=== PATIENT | female | born 1985 | race Caucasian/White ===

== ENCOUNTER 2017-07-22 14:15 | Emergency (ER) | payer BC, MEDICAID ==
[~2017-07-22] VITALS: Ht 167.6 cm; Wt 124.0 kg
[~2017-07-22 14:15] MED LIST: BUSP10 PO; EPIP0.3I IM; IRON18TA2 PO; LORTA5 PO; METH2.5 PO; PRED20 PO; TOPI50TA4 PO
[2017-07-22 14:21] VITALS: BP 171/100; PULSE 90; RESP 18; TEMP 97.2; O2SAT 96
[2017-07-22] MEDS ORDERED: HYDR-2374 PO (14:38)
[2017-07-22 15:04] LABS: BILIRUBIN, URINE NEG (NEG); BLOOD, URINE NEG (NEG); GLUCOSE,URINE NEG (NEG); KETONE, URINE NEG (NEG); NITRITE,URINE NEG (NEG); PH, URINE 5.5 (5.0-8.5); URINE LEUKOCYTE ESTERASE NEG (NEG)
[2017-07-22 15:09] LABS: URINE COLOR YELLOW (YELLW/STRAW)
[2017-07-22 15:10] LABS: RBC, URINE 0-3 /hpf (0-3); SQUAMOUS EPITHELIAL CELL URINE 0-5 /hpf (0-5); WBC, URINE 0-2 /hpf (0-5)
[2017-07-22 15:15] VITALS: O2SAT 98
[2017-07-22] MEDS ORDERED: SODIUM CHLORIDE 0.9% FLUSH 10 ML FLUSH IV FLUSH PRN (15:15)
[2017-07-22 15:21] LABS: AUTOMATED NEUTROPHIL # 8.4 TH/MM3 (1.8-7.7); BASOPHIL # 0.3 TH/MM3 (0-0.2); BASOPHIL % 2.2 % (0.0-2.0); EOSINOPHIL # 0.1 TH/MM3 (0-0.4); EOSINOPHIL % 0.9 % (0.0-4.0); HEMATOCRIT 41.5 % (35.0-46.0); LYMPH % 20.9 % (9.0-44.0); LYMPHOCYTE # 2.5 TH/MM3 (1.0-4.8); MEAN CELL VOLUME 80.6 FL (80.0-100.0); MEAN CORPUSCULAR HEMOGLOBIN 25.3 PG (27.0-34.0); MEAN CORPUSCULAR HGB CONC 31.3 % (32.0-36.0); MEAN PLATELET VOLUME 7.8 FL (7.0-11.0); MONO % 4.7 % (0.0-8.0); MONOCYTE # 0.6 TH/MM3 (0-0.9); NEUT % 71.3 % (16.0-70.0); PLATELET COUNT 391 TH/MM3 (150-450); RED BLOOD COUNT 5.15 MIL/MM3 (4.00-5.30); RED CELL DISTRIBUTION WIDTH 14.6 % (11.6-17.2); WHITE BLOOD COUNT 11.9 TH/MM3 (4.0-11.0)
[2017-07-22 15:29] LABS: CHLORIDE 103 MEQ/L (98-107); SODIUM (NA) 139 MEQ/L (136-145)
[2017-07-22 15:32] LABS: CALCIUM 9.1 MG/DL (8.5-10.1)
[2017-07-22 15:33] LABS: ALBUMIN 3.6 GM/DL (3.4-5.0); BICARBONATE 26.9 MEQ/L (21.0-32.0); BLOOD UREA NITROGEN 17 MG/DL (7-18); GLUCOSE,RANDOM 97 MG/DL (74-106); LIPASE 146 U/L (73-393)
[2017-07-22 15:35] LABS: ALT (GPT) 27 U/L (10-53)
[2017-07-22 15:36] LABS: AST (GOT) 15 U/L (15-37); CREATININE 0.78 MG/DL (0.50-1.00); GLOMERULAR FILTRATION RATE 85 ML/MIN (>89)
[2017-07-22 15:37] LABS: TOTAL BILIRUBIN ADULT 0.3 MG/DL (0.2-1.0)
[2017-07-22 15:38] LABS: ALKALINE PHOSPHATASE 88 U/L (45-117)
[2017-07-22] MEDS ORDERED: KETOROLAC TROMETHAMINE 30 MG/ML (IVP) VIAL IV PUSH ONE (15:45)
[2017-07-22 16:11] VITALS: BP 178/92; PULSE 98; RESP 16; O2SAT 98
--- NOTE | 2017-07-22 16:12 | PD ---
HPI Chief Complaint: Abdominal Pain Time Seen by Provider: 14:53 Travel History International Travel<30 days: No Contact w/Intl Traveler<30days: No Traveled to known affect area: No History of Present Illness HPI Patient is a 32-year-old female presents emergency department for evaluation of left lower quadrant abdominal pain, mild nausea for the past 2 weeks. Patient states been coming and going for some time. Has a history of lupus, fibromyalgia. She also has multiple other complaints including left upper extremity pain left upper extremity pain. No fevers no diarrhea no blood in stool no blood in the emesis. States she has not seen her primary care physician for this. She is coming by her who she states rather insisted that she come into the emergency department to be seen. She states her pain is 10 out of 10 intensity left lower quadrant, associated signs symptoms as above and context as above. Patient also states she is on her cycle now. 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) Diabetes: No Diminished Hearing: No Fibromyalgia: Yes GERD: No Genitourinary: No Headaches: Yes Hepatitis: No Hiatal Hernia: No Immune Disorder: Yes (LUPUS ) Kidney Stones: No Musculoskeletal: No Neurologic: Yes Reproductive: No Respiratory: No Immunizations Current: Yes Migraines: Yes Myocardial Infarction: No Renal Failure: No Seizures: No Ulcer: No Tetanus Vaccination: > 5 Years Influenza Vaccination: No ?: Not LMP: NOW Menopausal: No : 3 Para: 3 Miscarriage: 0 : 0 Tubal Ligation: Yes Past Surgical History Abdominal Surgery: No Appendectomy: No Cardiac Surgery: No Section: Yes (X 3) Cholecystectomy: No Ear Surgery: No Endocrine Surgery: No Eye Surgery: No Genitourinary Surgery: No Gynecologic Surgery: Yes (BREAST AUGMENTATION) Oral Surgery: No Thoracic Surgery: No Other Surgery: Yes (breast augmentation) Social History Alcohol Use: Yes (OCC) Tobacco Use: No Substance Use: No Allergies-Medications (Allergen,Severity, Reaction): Coded Allergies: penicillin G (Unverified Allergy, Severe, Anaphylaxis, 07/22/17) Reported Meds & Prescriptions Reported Meds & Active Scripts Active Reported Hydrocodone-Acetaminophen 10-300 Tab 1 Tab PO Q6H PRN Review of Systems Except as stated in HPI: all other systems reviewed are Neg Physical Exam Narrative GENERAL: Well-developed, morbidly obese female who appears to be in no distress. SKIN: Focused skin assessment warm/dry. HEAD: Atraumatic. Normocephalic. EYES: Pupils equal and round. No scleral icterus. No injection or drainage. ENT: No nasal bleeding or discharge. Mucous membranes pink and moist. NECK: Trachea midline. No JVD. CARDIOVASCULAR: Regular rate and rhythm. No murmur appreciated. RESPIRATORY: No accessory muscle use. Clear to auscultation. Breath sounds equal bilaterally. GASTROINTESTINAL: Abdomen obese but soft no true tenderness no rebound no percussive tenderness. No CVA tenderness, so some doctors as negative. No tenderness of Kelley's point and no tenderness at McBurney's point. GENITOURINARY: Exam was performed with a female nurse recruitment internship Tina Sales present at all times. Grossly normal external female genitalia with the exception of toilet paper which is visible on the external genitalia are wanted appears to extend internally. No vaginal discharge no vaginal bleeding, no cervical motion tenderness no bimanual tenderness. Patella. Her walker was able to be grasped manually and removed in its entirety. MUSCULOSKELETAL: No obvious deformities. No clubbing. No cyanosis. No edema. NEUROLOGICAL: Awake and alert. No obvious cranial nerve deficits. Motor grossly within normal limits. Normal speech. PSYCHIATRIC: Appropriate mood and affect; insight and judgment normal. Data Data Last Documented VS Vital Signs Date Time Temp Pulse Resp B/P (MAP) Pulse Ox O2 Delivery O2 Flow Rate FiO2 07/22/17 17:12 07/22/17 16:11 98 16 98 Room Air 07/22/17 14:21 97.2 Orders Orders Urinalysis - C+S If Indicated (07/22/17 14:36) Ed Urine Pregnancytest Poc (07/22/17 14:36) Complete Blood Count With Diff (07/22/17 15:06) Comprehensive Metabolic Panel (07/22/17 15:06) Lipase (07/22/17 15:06) Iv Access Insert/Monitor (07/22/17 15:06) Ecg Monitoring (07/22/17 15:06) Oximetry (07/22/17 15:06) Sodium Chloride 0.9% Flush (Ns Flush) (07/22/17 15:15) Ketorolac Inj (Toradol Inj) (07/22/17 15:45) Wet Prep Profile (07/22/17 15:33) Gc And Chlamydia Pcr (07/22/17 15:33) Ed Discharge Order (07/22/17 17:04) Labs Laboratory Tests Test 07/22/17 14:55 07/22/17 15:16 07/22/17 15:45 Urine Collection Type CLEAN CATCH Urine Color YELLOW Urine Turbidity CLEAR Urine pH 5.5 Urine Specific [place] 1.035 Urine Protein NEG mg/dL Urine Glucose (UA) NEG mg/dL Urine Ketones NEG mg/dL Urine Occult Blood NEG Urine Nitrite NEG Urine Bilirubin NEG Urine Leukocyte Esterase NEG Urine RBC 0-3 /hpf Urine WBC 0-2 /hpf Urine Squamous Epithelial Cells 0-5 /hpf Microscopic Urinalysis Comment CULT NOT INDICATED Urine Collection Time 14:55 White Blood Count 11.9 TH/MM3 Red Blood Count 5.15 MIL/MM3 Hemoglobin 13.0 GM/DL Hematocrit 41.5 % Mean Corpuscular Volume 80.6 FL Mean Corpuscular Hemoglobin 25.3 PG Mean Corpuscular Hemoglobin Concent 31.3 % Red Cell Distribution Width 14.6 % Platelet Count 391 TH/MM3 Mean Platelet Volume 7.8 FL Neutrophils (%) (Auto) 71.3 % Lymphocytes (%) (Auto) 20.9 % Monocytes (%) (Auto) 4.7 % Eosinophils (%) (Auto) 0.9 % Basophils (%) (Auto) 2.2 % Neutrophils # (Auto) 8.4 TH/MM3 Lymphocytes # (Auto) 2.5 TH/MM3 Monocytes # (Auto) 0.6 TH/MM3 Eosinophils # (Auto) 0.1 TH/MM3 Basophils # (Auto) 0.3 TH/MM3 CBC Comment DIFF FINAL Differential Comment Blood Urea Nitrogen 17 MG/DL Creatinine 0.78 MG/DL Random Glucose 97 MG/DL Total Protein 8.0 GM/DL Albumin 3.6 GM/DL Calcium Level 9.1 MG/DL Alkaline Phosphatase 88 U/L Aspartate Amino Transf (AST/SGOT) 15 U/L Alanine Aminotransferase (ALT/SGPT) 27 U/L Total Bilirubin 0.3 MG/DL Sodium Level 139 MEQ/L Potassium Level 4.0 MEQ/L Chloride Level 103 MEQ/L Carbon Dioxide Level 26.9 MEQ/L Anion Gap 9 MEQ/L Estimat Glomerular Filtration Rate 85 ML/MIN Lipase 146 U/L Clue Cells (Wet Prep) NONE SEEN Vaginal Trichomonas (Wet Prep) NONE SEEN Vaginal Yeast (Wet Prep) NONE SEEN Chlamydia trachomatis DNA (PCR) NOT DETECTED Neisseria gonorrhoeae DNA (PCR) NOT DETECTED MDM Medical Decision Making Medical Screen Exam Complete: Yes Emergency Medical Condition: Yes Differential Diagnosis Abdominal pain, constipation, gastritis, gastroenteritis, ovarian torsion highly unlikely, endometriosis, ruptured ovarian cyst. Narrative Course Patient roomed emergency department, basic labs are reassuring, physical exam reassuring. Patient given pain medicine, during the workup the patient approached the nursing desk and stated "how much longer is going to take a have a birthday alliance party to get to this afternoon". She was seen ambulating in the emergency department pain. Discussed with her the initial workup negative, no obvious source of her abdominal pain is been identified. Given her benign examination and presentation I informed her that radiation and ultrasound imaging likely not be diagnostic at this time and therefore was radiation outweighs potential benefits. Discussed she needs follow-up the primary care physician and discussed return to ED criteria. She stable for discharge. Diagnosis Primary Impression: Abdominal pain of unknown cause Additional Instructions: Follow up with your regular physician this week for further advice/workup. Disposition: 01 DISCHARGE HOME Condition: Stable Evelio Nieto MD Jul 22, 2017 16:12
== END 2017-07-22 17:13 | disposition home or self-care (01) ==
LOC: PHED 14:15
DX: R10.32 Left lower quadrant pain (principal); R11.0 Nausea; M79.7 Fibromyalgia; M32.9 Systemic lupus erythematosus, unspecified; M79.602 Pain in left arm; Z86.73 Personal history of transient ischemic attack (TIA), and cerebral infarction without residual deficits
CPT/HCPCS: 80053; 81001; 83690; 84703; 85025; 87210; 87491; 87591; 96374; 99284; J1885

== ENCOUNTER 2017-11-14 11:28 | Emergency (ER) | payer MEDICAID ==
[2017-11-14] MEDS ORDERED: SODIUM CHLORIDE 0.9% FLUSH 10 ML FLUSH IVF (12:15)
[2017-11-14 12:34] LABS: AUTOMATED NEUTROPHIL # 7.8 TH/MM3 (1.8-7.7); BASOPHIL # 0.4 TH/MM3 (0-0.2); BASOPHIL % 3.6 % (0.0-2.0); EOSINOPHIL # 0.2 TH/MM3 (0-0.4); EOSINOPHIL % 1.8 % (0.0-4.0); HEMATOCRIT 38.2 % (35.0-46.0); HEMO FLAGS DIFF FINAL; HEMOGLOBIN 12.9 GM/DL (11.6-15.3); LYMPH % 18.5 % (9.0-44.0); LYMPHOCYTE # 2.1 TH/MM3 (1.0-4.8); MEAN CELL VOLUME 80.7 FL (80.0-100.0); MEAN CORPUSCULAR HEMOGLOBIN 27.2 PG (27.0-34.0); MEAN CORPUSCULAR HGB CONC 33.7 % (32.0-36.0); MEAN PLATELET VOLUME 7.7 FL (7.0-11.0); MONO % 6.1 % (0.0-8.0); MONOCYTE # 0.7 TH/MM3 (0-0.9); PLATELET COUNT 420 TH/MM3 (150-450); RED BLOOD COUNT 4.73 MIL/MM3 (4.00-5.30); RED CELL DISTRIBUTION WIDTH 13.4 % (11.6-17.2); WHITE BLOOD COUNT 11.3 TH/MM3 (4.0-11.0)
[2017-11-14 12:35] LABS: BILIRUBIN, URINE NEG (NEG); BLOOD, URINE LARGE (NEG); GLUCOSE,URINE NEG (NEG); KETONE, URINE NEG (NEG); NITRITE,URINE NEG (NEG); PH, URINE 5.5 (5.0-8.5); URINE COLOR YELLOW (YELLW/STRAW); URINE LEUKOCYTE ESTERASE NEG (NEG)
[2017-11-14] MEDS: SODIUM CHLOR 0.9% 1000 ML INJ 1,000 ML IV ×2 (12:40→13:45)
[2017-11-14 12:46] LABS: METHOD OF COLLECTION CLEAN CATCH
[2017-11-14 12:47] LABS: BACTERIA, URINE MOD /hpf; COMMENT (UR) CULTURE INDICATED; CULTURE IF INDICATED CULTURE INDICATED; RBC, URINE 15-19 /hpf (0-3); SQUAMOUS EPITHELIAL CELL URINE > 8 /hpf (0-5)
[2017-11-14 12:50] LABS: CHLORIDE 108 MEQ/L (98-107); SODIUM (NA) 141 MEQ/L (136-145)
[2017-11-14 12:52] LABS: CALCIUM 8.9 MG/DL (8.5-10.1)
[2017-11-14 12:53] LABS: ALBUMIN 3.6 GM/DL (3.4-5.0); ANION GAP 5 MEQ/L (5-15); BICARBONATE 27.8 MEQ/L (21.0-32.0); BLOOD UREA NITROGEN 12 MG/DL (7-18); GLUCOSE,RANDOM 89 MG/DL (74-106)
[2017-11-14 12:56] LABS: ALT (GPT) 29 U/L (10-53); AST (GOT) 16 U/L (15-37); CREATININE 0.66 MG/DL (0.50-1.00); GLOMERULAR FILTRATION RATE 103 ML/MIN (>89)
[2017-11-14 12:57] LABS: TOTAL BILIRUBIN ADULT 0.2 MG/DL (0.2-1.0); TOTAL PROTEIN 7.9 GM/DL (6.4-8.2)
[2017-11-14 12:59] LABS: ALKALINE PHOSPHATASE 81 U/L (45-117)
[2017-11-14 13:01] LABS: BETA HCG QUANT LESS THAN 1 MIU/ML (0-5)
[2017-11-14] MEDS: NITROFURANTOIN MONOHYD MACROCR 100 MG CAP PO (13:45)
[2017-11-14] MEDS: KETOROLAC TROMETHAMINE 30 MG/ML (IVP) VIAL IV PUSH (13:50)
[2017-11-14 16:15] LABS: CHLAMYDIA PCR NOT DETECTED (NOT DETECT); NEISSERIA PCR NOT DETECTED (NOT DETECT)
== END 2017-11-14 16:35 | disposition home or self-care (01) ==
LOC: PHED 11:28
DX: R10.32 Left lower quadrant pain (principal); N39.0 Urinary tract infection, site not specified; B96.89 Other specified bacterial agents as the cause of diseases classified elsewhere; N83.201 Unspecified ovarian cyst, right side; M06.9 Rheumatoid arthritis, unspecified; M32.9 Systemic lupus erythematosus, unspecified; G35 Multiple sclerosis; M79.7 Fibromyalgia; I69.992 Facial weakness following unspecified cerebrovascular disease
CPT/HCPCS: 74176; 76830; 76856; 80053; 81001; 84702; 84703; 85025; 87086; 87210; 87491; 87591; 96361; 96374; 99285-25